=== PATIENT | male | born 1950 | race Caucasian/White ===

== ENCOUNTER 2017-04-17 13:14 | Day surgery (SDC) | payer MEDICARE ==
[~2017-04-17] VITALS: Ht 185.4 cm; Wt 90.3 kg
--- NOTE | 2017-04-17 07:44 | PCM.HPANE ---
Patient Data Surgeon Admitting Provider: Attending Provider:Sacha Main MD Primary Care Physician:Kelli Rocha MD Other Provider:Twin Hutson Anesthesia Reason for Visit Rectal Bleeding Ht/WT & BMI Body Mass Index Allergies Coded Allergies: ether (Verified Allergy, Unknown, Anaphylaxis, 04/17/17) Past Anesthesia History Anesthesia History: Denies:: Abnormal Airway, Difficult Intubation Diabetes History Hx Diabetes?: No MRSA MRSA: No Medications Hypertension Medication: No Home Meds Incl Beta Corwin: No Reported Medications Methocarbamol 750 Mg [id number] Mg PO QID PRN For Spasm Ref 0 04/16/17 Hydrocodone-Acetaminophen 10-325 mg 1 Each Tablet1 Tablet PO Q6H PRN For Pain Ref 0 04/16/17 Gabapentin 300 Mg [id number] Mg PO TID Ref 0 04/16/17 Fluoxetine 10 Mg Iikwivi94 Mg PO TID Ref 0 04/16/17 Zolpidem (Ambien)10 Mg Tjdage40 Mg PO HS PRN For Insomnia Ref 0 04/16/17 Discontinued Reported Medications Clindamycin Phosphate (Clindamycin Phosphate Topical)60 Ml Lotion1 Applic TP BID #60 ML Ref 0 04/16/17 History History of ENT Problems?: No HEENT History: Denies:: Abnormal Airway Cataracts Difficult Intubation Dysphagia Glaucoma Hearing Problem Sinus Problem TMJ Denture Type: None Teeth Condition: Within Normal Limits Hx of Heart Problems?: No Cardiovascular History: Denies:: AICD Abdominal Aortic Aneurism Atrial Fibrillation Cardiac Surgery Chest Pain Congestive Heart Failure Coronary Artery Disease Edema Heart Murmur Hypertension Irregular Heartbeat Pacemaker Peripheral Vascular Rheumatic Fever Thrombophlebitis Valvular Heart Disease Hx of Respiratory Problem?: No Respiratory History: Denies:: Asthma COPD Chest Surgery Cough Dyspnea Emphysema Hemoptysis Oxygen Administration Pneumonia Pulmonary Embolism Tuberculosis Use of C-PAP Machine Use of Inhalers / NEBS Hx Neurologic Problems?: No Neurological History: Denies:: Alzheimer's Disease CVA Dementia Dizziness Headaches Multiple Sclerosis Parkinson's Disease Peripheral Neuropathy Seizures TIA Hx of GI Problems?: No Gastrointestinal History: Denies:: Cirrhosis Diverticulitis Gall Bladder Disease Gastroesphageal Reflux Gastrointestinal Bleeding Heartburn Hepatitis Hiatal Hernia Liver Disease Rectal Bleeding Hx of Problems?: No HX of Peritoneal Dialysis: No Male Hx: Denies:: Prostate Problems Scrotal Mass Testicular Surgery Skin History: Denies:: History Skin Disorders? Pressure Ulcers Hx Musculoskeletal Problems?: No Hx of Psycho/Social Problems?: No Hx Surgeries?: No Hx Any Other Health Problems?: No Hx Diabetes: No Stop/Bang Treated for Sleep Apnea?: No Do You Have a CPAP Machine?: No Risk Assessment Category Category 1A: Patient has history of documented sleep apnea, and HAS NOT received any narcotic, sedative or anesthesia administration during this stay. Category 1B: Patient has history of documented sleep apnea, and HAS received any narcotic , sedative or anesthesia administration during this stay Category 2: Patient has SUSPECTED Obstructive Sleep Apnea, and HAS received any narcotic , sedative or anesthesia administration during this stay. Category 3: Patient has SUSPECTED Obstructive Sleep Apnea and HAS NOT received narcotic, sedative or anesthesia administration during this stay. Category 4: Outpatient in Procedural Areas with known sleep apnea or who screen positive for High Risk via the STOP/BANG questionnaire. Exam Exam General Appearance: Alert, Oriented X3, Cooperative, No Acute Distress HEENT/AIRWAY: MP 2 Lungs: Clear to Auscultation, Normal Air Movement Heart: Exam Unremarkable, Regular Rate/Rhythm, No Murmurs/Rubs/Gallops Plan Impression Patient chart reviewed, patient interviewed and anesthestic plan with risks, benefits, and alternatives discussed, and informed consent obtained. ASA Physical Status: ASA2 Mod Systemic Disease Anesthetic Plan: MAC Bene/Risks/Altern/Consents: Yes HP Complete Prior to Induction: Yes Braxton Ramirez MD Apr 17, 2017 07:44
[~2017-04-17 13:14] MED LIST: 0.9% Sodium Chloride 1,000 ML IV SCH; CLIN60LO2 TP; FLUO10CA20 PO; GABA-502 PO; HYDR-3740 PO; Lactated Ringer's 1,000 ML IV ONE; METH750T3 PO; Sodium Biphos-Phos 133 mL Enema RECTAL PRN; Sodium Chloride LOK Flush 10 mL Syringe IV PRN; ZLP10T PO
[2017-04-17] MEDS ORDERED: Propofol 10,000 mCg/mL 20 mL Inj ONE (13:15)
[2017-04-17] MEDS ORDERED: fentaNYL-PF 50 mCg/mL 2 mL Inj ONE (13:15)
[2017-04-17 13:56] VITALS: BP 122/76; PULSE 65; O2SAT 98
--- NOTE | 2017-04-17 14:23 | PCM.HPANE ---
Patient Data Date of Service: Apr 17, 2017 ([id number]) Surgeon Admitting Provider: Attending Provider:Sacha Main MD Primary Care Physician:Kelli Rocha MD Other Provider:Twin Hutson Anesthesia Reason for Visit Rectal Bleeding Ht/WT & BMI Height (Feet): 6 Height (Inches): 1 Weight (Kilograms): 90.26 Body Mass Index 26.00 Allergies Coded Allergies: ether (Verified Allergy, Unknown, Anaphylaxis, 04/17/17) Past Anesthesia History Anesthesia History: Denies:: Abnormal Airway, Anesthesia Reactions, Difficult Intubation, Fam Anesthesia Reaction, Fam Malignant Hypertherm, Malignant Hyperthermia Diabetes History Hx Diabetes?: No MRSA MRSA: No Medications Reported Medications Methocarbamol 750 Mg [id number] Mg PO QID PRN For Spasm Ref 0 04/16/17 Hydrocodone-Acetaminophen 10-325 mg 1 Each Tablet1 Tablet PO Q6H PRN For Pain Ref 0 04/16/17 Gabapentin 300 Mg [id number] Mg PO TID Ref 0 04/16/17 Fluoxetine 10 Mg Vucuzzw84 Mg PO TID Ref 0 04/16/17 Zolpidem (Ambien)10 Mg Vybzfq38 Mg PO HS PRN For Insomnia Ref 0 04/16/17 Discontinued Reported Medications Clindamycin Phosphate (Clindamycin Phosphate Topical)60 Ml Lotion1 Applic TP BID #60 ML Ref 0 04/16/17 History History of ENT Problems?: No HEENT History: Denies:: Abnormal Airway Difficult Intubation Dysphagia Hearing Problem Denture Type: None Teeth Condition: Within Normal Limits Hx of Heart Problems?: No Cardiovascular History: Denies:: AICD Chest Pain Pacemaker Valvular Heart Disease Hx of Respiratory Problem?: No Respiratory History: Positive for:: Asthma (childhood no inhalers now) Hx Neurologic Problems?: No Neurological History: Denies:: CVA Hx of GI Problems?: No Gastrointestinal History: Denies:: Gastrointestinal Bleeding Hx of Problems?: No Hx Musculoskeletal Problems?: No Musculoskeletal History: Denies:: Fibromyalgia Joint Replacement Hx of Psycho/Social Problems?: Yes Psycho Social History: Positive for:: Hx Depression (controlled) Denies:: Anxiety Hx Surgeries?: Yes (tonsils, appy, neck injection) Hx Any Other Health Problems?: Yes Hx Diabetes: No Hx Alcohol Use: Yes (never)Hx Substance Use: No Stop/Bang Treated for Sleep Apnea?: No Do You Have a CPAP Machine?: No S-Snoring: Do You Snore Loudly: Yes T-Tired: feel tired, fatigued: No O-Obsered: Observed not breath: No P-Blood Pressure: treated: No B- Body Mass Index > 35 kg/m2: Yes A- Age over 50: Yes N- Neck Large Circumference: No G- Gender Male: Yes KIMMIE Total Score: 4 KIMMIE Risk Assessment: Low Risk, <3 Yes KIMMIE Category 2: Yes Risk Assessment Category Category 1A: Patient has history of documented sleep apnea, and HAS NOT received any narcotic, sedative or anesthesia administration during this stay. Category 1B: Patient has history of documented sleep apnea, and HAS received any narcotic , sedative or anesthesia administration during this stay Category 2: Patient has SUSPECTED Obstructive Sleep Apnea, and HAS received any narcotic , sedative or anesthesia administration during this stay. Category 3: Patient has SUSPECTED Obstructive Sleep Apnea and HAS NOT received narcotic, sedative or anesthesia administration during this stay. Category 4: Outpatient in Procedural Areas with known sleep apnea or who screen positive for High Risk via the STOP/BANG questionnaire. Exam Exam Vital Signs Vital Signs Date Time Temp Pulse Resp B/P Pulse Ox O2 Delivery O2 Flow Rate FiO2 04/17/17 13:56 65 122/76 98 Room Air General Appearance: Alert, Oriented X3, Cooperative HEENT/AIRWAY: MP 1 Lungs: Clear to Auscultation Heart: Exam Unremarkable Plan Impression Patient chart reviewed, patient interviewed and anesthestic plan with risks, benefits, and alternatives discussed, and informed consent obtained. NPO per Anesth. Guidelines: Yes ASA Physical Status: ASA2 Mod Systemic Disease Anesthetic Plan: GA Bene/Risks/Altern/Consents: Yes HP Complete Prior to Induction: Yes Eris Villalobos MD Apr 17, 2017 14:23
[2017-04-17] MEDS ORDERED: Ondansetron 2 mg/mL 2 mL Inj IVPUSH PRN (14:25)
[2017-04-17] MEDS ORDERED: MetoCLOpramide 5 mg/mL 2 mL Inj IVPUSH PRN (14:25)
[2017-04-17] MEDS: Lactated Ringer's 1,000 ML IV SCH ×2 (14:36→14:56)
--- NOTE | 2017-04-17 15:02 | PCM.ANEP1 ---
Post Anesthesia PACU Phase 1 Assessment Vital Signs 16/72, 59, 95%, 16 Vital Signs Date Time Temp Pulse Resp B/P Pulse Ox O2 Delivery O2 Flow Rate FiO2 04/17/17 13:56 65 122/76 98 Room Air Anesthetic Administered: GA Level of Alertness: Awake, talking LEES's with Equal Strength: Yes Pain: No Nausea or Vomiting: No CV Function & Hydration Stable: Yes Airway Device: NONE Oxygen Delivery: Room Air Lungs: Clear to Auscultation Dermatome Level: Full Sensation Summary EASY SEDATION PACU Phase 2 Assessment Complications: No Follow up Care: No Patient Instructions Provided: N/A Eris Villalobos MD Apr 17, 2017 15:02
[2017-04-17 15:06] VITALS: BP 116/72; PULSE 58; RESP 16; O2SAT 95
[2017-04-17 15:11] VITALS: BP 118/77; PULSE 60; RESP 16; O2SAT 99
[2017-04-17 15:16] VITALS: BP 125/83; PULSE 64; RESP 16; O2SAT 98
--- NOTE | 2017-04-17 23:41 | ENDO ---
[address] [address] ENDOSCOPY PROCEDURE PATIENT: ELIF RYAN : 1950 MR#: [id number] ADMIT: 04/17/2017 JOB ID: [id number] DATE OF PROCEDURE: 04/17/2017 PREPROCEDURE DIAGNOSIS: Rectal bleeding. POSTPROCEDURE DIAGNOSIS: Sigmoid colon polyp, ascending colon polyps, mild internal hemorrhoids. PROCEDURE: Colonoscopy with biopsy. ENDOSCOPIST: Sacha Main MD. SEDATION: See the anesthesia record. INDICATIONS: The patient is a 66-year-old man who has never had prior colonoscopy. He had a single episode of noticing blood in his underwear. He has not had any pain with bowel movements, no prolapsing tissue, no change in bowel habits, no abdominal pain. There is no family history of colon cancer or inflammatory bowel disease. After discussion of risks and benefits, he agreed to proceed with colonoscopy. FINDINGS: There was a 2-3 mm flat polyp in the sigmoid colon. There was a 4-5 mm rounded polyp in the ascending colon. The terminal ileum was normal. There were mild internal hemorrhoids on retroflexion. DESCRIPTION OF PROCEDURE: Procedural sedation was achieved. The patient was connected to hemodynamic monitoring, pulse oximetry, capnography. After digital rectal exam, the PCF-H180AL colonoscope was inserted and passed under visualization to the cecum. The appendiceal orifice and ileocecal valve were visualized and photo documented. The terminal ileum was intubated, which was normal. The scope was then withdrawn and carefully retroflexed in the rectum. In the ascending colon, there was a 4-5 mm rounded polyp which was removed with cold forceps and sent for permanent pathology. In the sigmoid colon at around 35 cm, there was a 2-3 mm flat polyp which was removed with cold forceps and sent for permanent pathology. Retroflexion revealed small internal hemorrhoids. The scope was withdrawn and the procedure terminated. He tolerated the entire procedure well. RECOMMENDATIONS: A letter will be mailed with biopsy results. Depending on biopsy results, I recommend next colonoscopy in five years.
--- NOTE | 2017-04-19 13:54 | PATH ---
SURGICAL PATHOLOGY Attending Physician:Mk Campo CASE STATUS: Signed Out PATIENT NAME: ELIF RYAN PID: [id number] : 1950 DATE COLLECTED:04/17/2017 00:00 SPECIMEN: 1: Colon, Biopsy 2: Colon, Biopsy CLINICAL HISTORY: RECTAL BLEEDING 1. RIGHT COLON POLYP 2. SIGMOID POLYP FINAL DIAGNOSIS: 1.RIGHT COLON POLYP: TUBULAR ADENOMA INVOLVING BOTH BIOPSY FRAGMENTS. 2.SIGMOID COLON POLYP: TUBULAR ADENOMA INVOLVING SINGLE BIOPSY FRAGMENT. ICD10 D12.5 GROSS DESCRIPTION: The specimen is received in two formalin filled containers labeled with the patient's name. 1). Specimen a sublabeled "right colon polyp" and consists of 2 portions of tissue which aggregate to 0.3 x 0.2 x 0.2 CM. The specimen is entirely submitted in cassette 1A. 2). The specimen is sublabeled "sigmoid polyp" and consists of 2 portions of tissue which aggregate to 0.2 x 0.2 x 0.2 CM. The specimen is entirely submitted in cassette tissue 2A. 04/18/2017 [facility] MICRO DESCRIPTION: See diagnosis. ICD-9 CODES: CPT CODES: 1: 70114 2: 82931 Electronically Signed Out Bari Mcpherson MD [facility] Pathology [facility] [address], [place] [address] Technical component performed at [facility], [facility] [address], [place], [address]
== END 2017-04-17 23:59 | disposition home or self-care (01) ==
LOC: END 13:14
PROVIDERS: ATTEND Student in an Organized Health Care Education/Training Program
DX: D12.2 Benign neoplasm of ascending colon (principal); D12.5 Benign neoplasm of sigmoid colon; K64.8 Other hemorrhoids; G47.00 Insomnia, unspecified; E78.5 Hyperlipidemia, unspecified; J45.909 Unspecified asthma, uncomplicated; N40.0 Benign prostatic hyperplasia without lower urinary tract symptoms; F41.8 Other specified anxiety disorders; K21.9 Gastro-esophageal reflux disease without esophagitis; M54.5 Low back pain
CPT/HCPCS: 45380; J2250; J3010; J7120